=== PATIENT | female | born 1965 | race Caucasian/White ===

== ENCOUNTER 2019-05-01 14:53 | Inpatient (IN) | payer SELFPAY ==
[~2019-05-01] VITALS: Ht 165 cm; Wt 127.0 kg
--- NOTE | ~2019-05-01 | EKG ---
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
--- NOTE | ~2019-05-01 | EKG ---
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
--- NOTE | ~2019-05-01 | EKG ---
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
--- NOTE | ~2019-05-01 | EKG ---
[place], [place] ELECTROCARDIOGRAM REPORT NAME: HUAN SEXTON UNIT #: [id number] ROOM: 416 DOCTOR: MAIKOL DRAFT REPORT BIRTHDATE: [birth year] [facility] Test Date: 2019-05-01 Test Time: 20:52:53 Pat Name: HUAN SEXTON Department: Room: 416 2 Gender: F Inside Wirer: Doris Delvalle : 1965 Requested By: MISAEL HUDSON Order Number: [id number] Reading MD: Gladys Hinojosa MD Measurements Intervals [place] Rate: 82 P: 42 MT: 190 QRS: 31 QRSD: 94 T: 23 QT: 379 QTc: 443 Interpretive Statements Sinus rhythm Ventricular trigeminy Probable left atrial enlargement Low voltage, precordial leads No previous ECG available for comparison Electronically Signed On 05-02-2019 7:47:58 PDT by Gladys Hinojosa MD CM:EKGRPT:ELECTROCARDIOGRAM REPORT 51 MISAEL LASSITER DRAFT REPORT MISAEL HUDSON MD
--- NOTE | ~2019-05-01 | EKG ---
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
[2019-05-01 15:03] VITALS: BP 163/81
[2019-05-01 15:29] LABS: BASO # 0.1 10*3/uL (0.0-0.1); BASO % 0.6 % (0.0-1.0); EOS # 0.2 10*3/uL (0.0-0.4); EOS % 1.8 % (1.0-4.0); HEMOGLOBIN 15.1 g/dl (12.0-16.0); LYMPH # 2.7 10*3/uL (1.3-4.4); LYMPH % 31.7 % (27.0-41.0); MEAN CELL VOLUME 95.1 fl (81.0-99.0); MEAN CORPUSCULAR HGB 31.9 pg (27.0-31.0); MEAN CORPUSCULAR HGB CONC 33.6 g/dl (33.0-37.0); MEAN PLATELET VOLUME 12.5 fl (9.6-12.3); MONO # 0.6 10*3/uL (0.1-1.0); MONO % 6.6 % (3.0-9.0); NEUT % 58.9 % (47.0-73.0); PLATELET COUNT AUTOMATED 237 10*3/uL (130-400); RED BLOOD COUNT 4.73 10*6/uL (4.10-5.10); RED CELL DISTRI WIDTH 13.3 % (0-14.5); WHITE BLOOD COUNT 8.4 10*3/uL (4.8-10.8)
--- NOTE | 2019-05-01 15:41 | NUR ---
ZOFRAN 4MG IV PUSH GIVEN BY LUIS CALDERON.
[2019-05-01 16:02] LABS: ACT PARTIAL THROMBO TIME 24.5 SECONDS (20.0-32.1); INTERNATIONAL NORM RATIO 0.9 (2.0-3.5)
[2019-05-01 16:10] LABS: ALBUMIN 3.6 gm/dl (3.1-4.5); ALKALINE PHOSPHATASE 107 U/L (45-117); BUN 10 mg/dl (7-24); CHLORIDE 106 mmol/L (98-107); CREATININE 0.74 mg/dL (0.55-1.02); POTASSIUM 3.8 mmol/L (3.5-5.1); SGOT/AST 23 IU/L (3-35); SGPT/ALT 41 U/L (12-78); SODIUM 138 mmol/L (136-145); TOTAL PROTEIN 7.1 gm/dL (6.4-8.2)
[2019-05-01 16:12] LABS: TROPONIN I < 0.015 ng/ml (<0.045)
[2019-05-01 16:32] VITALS: BP 137/91
[2019-05-01 19:50] VITALS: BP 150/73
--- NOTE | 2019-05-01 19:50 | NUR ---
A 54, admitted to , under the services of MAURICE Mittal DO with a diagnosis of SOB, CHEST PAIN, PALPITATIONS, NAUSEA. Chief complaint is SHORTNESS OF BREATH. Patient arrived via bed from ER. Monitor applied. Initial assessment completed. Vital signs taken and recorded. MAURICE MITTAL DO notified of admission to the unit. Orders received. See assessment for past medical history, medications and allergies. Patient and/or family oriented to unit. [address] visitation policy reviewed. Clothing/patient valuable form completed. SKIN WDI. NO WOUNDS PRESENT ON ASSESSMENT. REED WHIPPLE
[2019-05-01 20:00] VITALS: BP 150/73
[2019-05-01] MEDS ORDERED: CELEXA20 MG PO (20:13)
--- NOTE | 2019-05-01 20:30 | NUR ---
SPOKE WITH DR LEGER OUTSIDE PATIENTS ROOM. HE IS AWARE THAT PATIENTS MED REC IS UP TO DATE, STATES HE WILL CONTINUE THE PTS ONLY HOME MED, CELEXA SO SHE IS ABLE TO TAKE HER DOSE TONIGHT. NO NEW ORDERS AT THIS TIME. WILL CONTINUE TO MONITOR.
[2019-05-02] VITALS: BP 136/66
--- NOTE | 2019-05-02 06:07 | NUR ---
WHILE ADMINISTERING MORNING MEDICATIONS, PT STATES SHE HAS NO CHEST PAIN OR SHORTNESS OF BREATH. WILL CONTINUE TO MONITOR.
[2019-05-02 06:28] LABS: BASO % 0.5 % (0.0-1.0); EOS # 0.2 10*3/uL (0.0-0.4); HEMATOCRIT 44.8 % (37.0-47.0); HEMOGLOBIN 14.5 g/dl (12.0-16.0); LYMPH # 3.1 10*3/uL (1.3-4.4); LYMPH % 40.7 % (27.0-41.0); MEAN CELL VOLUME 97.2 fl (81.0-99.0); MEAN CORPUSCULAR HGB 31.5 pg (27.0-31.0); MEAN CORPUSCULAR HGB CONC 32.4 g/dl (33.0-37.0); MEAN PLATELET VOLUME 12.2 fl (9.6-12.3); MONO # 0.5 10*3/uL (0.1-1.0); MONO % 7.2 % (3.0-9.0); NEUT # 3.7 10*3/uL (2.3-7.9); NEUT % 49.5 % (47.0-73.0); PLATELET COUNT AUTOMATED 177 10*3/uL (130-400); RED BLOOD COUNT 4.61 10*6/uL (4.10-5.10); RED CELL DISTRI WIDTH 13.3 % (0-14.5); WHITE BLOOD COUNT 7.5 10*3/uL (4.8-10.8)
[2019-05-02 06:41] LABS: INTERNATIONAL NORM RATIO 0.9 (2.0-3.5)
[2019-05-02 07:02] LABS: BUN 13 mg/dl (7-24); CHLORIDE 109 mmol/L (98-107); CHOLESTEROL 164 mg/dL (<200); CREATININE 0.76 mg/dL (0.55-1.02); HDL CHOLESTEROL 42 mg/dl (40-60); LDL CHOLESTEROL 100 mg/dL (9-159); PHOSPHOROUS 3.2 mg/dL (2.5-4.9); POTASSIUM 3.5 mmol/L (3.5-5.1); SGOT/AST 24 IU/L (3-35); SGPT/ALT 35 U/L (12-78); SODIUM 143 mmol/L (136-145); TOTAL PROTEIN 6.2 gm/dL (6.4-8.2); TRIGLYCERIDES 111 mg/dl (<150); VLDL CHOLESTEROL 22 mg/dL (6-40)
[2019-05-02 07:08] LABS: ALKALINE PHOSPHATASE 105 U/L (45-117)
[2019-05-02] MEDS ORDERED: METOPROLOL SUCC25 M2 PO (09:56)
--- NOTE | 2019-05-02 11:03 | NUR ---
Discharge instructions reviewed with patient/family. Patient receptive and verbalizes understanding. Follow-up care arranged. Written instructions given to patient/family. DOLORES LEBLANC
[2019-05-03 09:53] LABS: VITAMIN D, 25-HYDROXY 16.1 ng/mL (30-100)
== END 2019-05-02 11:03 | disposition home or self-care (01) | DRG 309 ==
LOC: ED 14:53 → EDHOLD 18:36 → 4E 19:15
PROVIDERS: Emergency Medicine; Student in an Organized Health Care Education/Training Program; ADMIT Internal Medicine
DX: I49.3 Ventricular premature depolarization (principal); E44.0 Moderate protein-calorie malnutrition; E66.01 Morbid (severe) obesity due to excess calories; F41.9 Anxiety disorder, unspecified; F32.9 Major depressive disorder, single episode, unspecified; R00.2 Palpitations; R00.0 Tachycardia, unspecified; R73.9 Hyperglycemia, unspecified; M50.20 Other cervical disc displacement, unspecified cervical region; R03.0 Elevated blood-pressure reading, without diagnosis of hypertension; E87.8 Other disorders of electrolyte and fluid balance, not elsewhere classified; E83.41 Hypermagnesemia; Z68.42 Body mass index [BMI] 45.0-49.9, adult; Z82.49 Family history of ischemic heart disease and other diseases of the circulatory system; Z85.820 Personal history of malignant melanoma of skin; Z90.49 Acquired absence of other specified parts of digestive tract; Z90.89 Acquired absence of other organs; Z80.8 Family history of malignant neoplasm of other organs or systems; Z79.899 Other long term (current) drug therapy